=== PATIENT | female | born 1985 | race Caucasian/White ===

== ENCOUNTER → 2021-06-03 | Outpatient (CLI) | payer OTHER ==
[~2021-06-03] MED LIST: HYDACE5 PO; IBUP600 PO; IBUP800 PO
== END | disposition home or self-care (01) ==
LOC: LAB SHORT 11:50 → LAB 11:50
DX: O09.511 Supervision of elderly primigravida, first trimester (principal)
CPT/HCPCS: 87081; 87150

== ENCOUNTER 2021-07-06 19:21 | Inpatient (IN) | payer OTHER ==
[~2021-07-06] VITALS: Ht 157.5 cm; Wt 84.5 kg
[2021-07-06 23:30] LABS: BASOPHILS ABSOLUTE AUTO 0.03 K/mm3 (0.00-0.23); BASOPHILS PERCENT AUTO 0 % (0-2); EOSINOPHILS ABSOLUTE AUTO 0.03 K/mm3 (0.00-0.68); EOSINOPHILS PERCENT AUTO 0 % (0-6); Hematocrit 37.3 % (33.0-51.0); IMMATURE GRAN ABSOLUTE AUTO 0.07 K/mm3 (0.00-0.10); IMMATURE GRAN PERCENT AUTO 1 % (0-1); LYMPHOCYTES ABSOLUTE AUTO 2.52 K/mm3 (0.84-5.20); LYMPHOCYTES PERCENT AUTO 22 % (21-46); MONOCYTES ABSOLUTE AUTO 0.75 K/mm3 (0.16-1.47); MONOCYTES PERCENT AUTO 6 % (4-13); Mean Corpuscular HGB 32.7 pg (26.0-34.0); Mean Corpuscular HGB Conc 34.9 g/dL (31.5-36.5); Mean Corpuscular Volume 94 fL (80-100); Mean Platelet Volume 10.4 fL (9.1-12.4); NEUTROPHILS ABSOLUTE AUTO 8.33 K/mm3 (1.96-9.15); NEUTROPHILS PERCENT AUTO 71 % (41-73); Platelet Count 216 K/mm3 (150-400); RDW Coefficient Variation 15.5 % (11.7-14.2); RDW Standard Deviation 53.8 fL (35.1-46.3); Red Blood Cell Count 3.98 M/mm3 (3.80-5.20); White Blood Cell Count 11.73 K/mm3 (4.00-11.30)
[2021-07-06] MEDS ORDERED: PRENATAL TABLE1 EAC2 PO (23:33)
[2021-07-06] MEDS ORDERED: ASPI81CH PO (23:33)
[2021-07-07 10:18] LABS: PCO2 Cord - Arterial 48 mmHg (40-50); pH Cord - Arterial 7.31 (7.28-7.35)
[2021-07-07 10:20] LABS: PO2 Cord - Arterial 19 mmHg (16-20); pH Umbilical Cord - Venous 7.36 (7.26-7.35)
[2021-07-08 05:06] LABS: BASOPHILS ABSOLUTE AUTO 0.02 K/mm3 (0.00-0.23); BASOPHILS PERCENT AUTO 0 % (0-2); EOSINOPHILS ABSOLUTE AUTO 0.05 K/mm3 (0.00-0.68); EOSINOPHILS PERCENT AUTO 1 % (0-6); Hematocrit 33.7 % (33.0-51.0); Hemoglobin 11.4 g/dL (11.5-16.0); IMMATURE GRAN ABSOLUTE AUTO 0.08 K/mm3 (0.00-0.10); IMMATURE GRAN PERCENT AUTO 1 % (0-1); LYMPHOCYTES ABSOLUTE AUTO 2.18 K/mm3 (0.84-5.20); LYMPHOCYTES PERCENT AUTO 20 % (21-46); MONOCYTES ABSOLUTE AUTO 0.74 K/mm3 (0.16-1.47); MONOCYTES PERCENT AUTO 7 % (4-13); Mean Corpuscular HGB 32.3 pg (26.0-34.0); Mean Corpuscular HGB Conc 33.8 g/dL (31.5-36.5); Mean Corpuscular Volume 96 fL (80-100); Mean Platelet Volume 9.9 fL (9.1-12.4); NEUTROPHILS ABSOLUTE AUTO 8.04 K/mm3 (1.96-9.15); NEUTROPHILS PERCENT AUTO 72 % (41-73); Platelet Count 203 K/mm3 (150-400); RDW Coefficient Variation 15.9 % (11.7-14.2); RDW Standard Deviation 55.3 fL (35.1-46.3); Red Blood Cell Count 3.53 M/mm3 (3.80-5.20); White Blood Cell Count 11.11 K/mm3 (4.00-11.30)
--- NOTE | 2021-07-08 12:59 | NUR ---
PT UP AMBULATING THROUGH HALLWAY PUSHING NB IN OPEN CRIB.
--- NOTE | 2021-07-08 17:08 | NUR ---
07/08/21 1708 Paige Murray LATE ENTRY: PATIENT RECEIVED ANTIBIOTICS PRIOR TO ARRIVING IN THE OR.
[2021-07-09] MEDS ORDERED: IBUP800 PO (10:17)
[2021-07-09] MEDS ORDERED: DOCU100 PO (10:17)
[2021-07-09] MEDS ORDERED: ROXYBOND5 MG PO (10:18)
--- NOTE | 2021-07-09 14:45 | NUR ---
pt given written and verbal dc instructions. questions reviewed and given in detail. liliana will call [facility] on sunday for her and baby to be seen within 2 weeks of life. knows to call sooner if theres any issues. will also follow up on sunday for ppfu at [address]
== END 2021-07-09 14:24 | disposition home or self-care (01) | DRG 787 ==
LOC: OBS 19:21 → BC 19:21 → OBS 22:49 → BC 22:52
PROVIDERS: ADMIT Obstetrics & Gynecology
PROC: 10D00Z1 Extraction of Products of Conception, Low, Open Approach (ICD-10-PCS; principal; 2021-07-07 09:30)
DX: O99.824 Streptococcus B carrier state complicating childbirth (principal); D62 Acute posthemorrhagic anemia; Z37.0 Single live birth; Z3A.41 41 weeks gestation of pregnancy; Z67.11 Type A blood, Rh negative; O76 Abnormality in fetal heart rate and rhythm complicating labor and delivery; O26.893 Other specified pregnancy related conditions, third trimester; O99.03 Anemia complicating the puerperium; O77.0 Labor and delivery complicated by meconium in amniotic fluid; Z86.16 Personal history of COVID-19
CPT/HCPCS: 36415; 59025; 82803; 85025; 86850; 86900; 86901; A9270; J0290; J0690; J1885; J2370; J2590; J2765; J7120

== ENCOUNTER → 2023-04-10 | Outpatient (CLI) | payer OTHER ==
[~2023-04-10] MED LIST changes: +ASPI81CH PO; +DOCU100 PO; +PRENATAL TABLE1 EAC2 PO; +ROXYBOND5 MG PO
== END ==
LOC: LAB SHORT 10:32 → LAB 10:32
DX: O09.892 Supervision of other high risk pregnancies, second trimester (principal); Z3A.00 Weeks of gestation of pregnancy not specified
CPT/HCPCS: 87081; 87150

== ENCOUNTER 2023-05-07 19:17 | Inpatient (IN) | payer OTHER ==
[~2023-05-07] VITALS: Ht 157.5 cm; Wt 84.5 kg
[2023-05-07 20:22] LABS: BASOPHILS ABSOLUTE AUTO 0.02 K/mm3 (0.00-0.23); BASOPHILS PERCENT AUTO 0 % (0-2); EOSINOPHILS ABSOLUTE AUTO 0.04 K/mm3 (0.00-0.68); EOSINOPHILS PERCENT AUTO 0 % (0-6); Hematocrit 35.2 % (33.0-51.0); IMMATURE GRAN ABSOLUTE AUTO 0.07 K/mm3 (0.00-0.10); IMMATURE GRAN PERCENT AUTO 1 % (0-1); LYMPHOCYTES PERCENT AUTO 19 % (21-46); MONOCYTES ABSOLUTE AUTO 0.74 K/mm3 (0.16-1.47); MONOCYTES PERCENT AUTO 6 % (4-13); Mean Corpuscular HGB 32.4 pg (26.0-34.0); Mean Corpuscular HGB Conc 34.1 g/dL (31.5-36.5); Mean Corpuscular Volume 95 fL (80-100); NEUTROPHILS PERCENT AUTO 74 % (41-73); Platelet Count 209 K/mm3 (150-400); RDW Coefficient Variation 14.1 % (11.7-14.2); RDW Standard Deviation 49.3 fL (35.1-46.3); White Blood Cell Count 11.77 K/mm3 (4.00-11.30)
[2023-05-07 20:57] VITALS: BP 123/61
[2023-05-08] VITALS (27 sets, daily range): BP systolic 98–138; BP diastolic 49–79
--- NOTE | 2023-05-08 20:31 | NUR ---
nurse in room with pt. All needs being met at this time.
--- NOTE | 2023-05-08 23:26 | NUR ---
pt wants to sleep. Baby cared for by nurse. Will take baby to Pt for next feed.
[2023-05-09 02:37] VITALS: BP 126/59
[2023-05-09 05:02] VITALS: BP 145/62
[2023-05-09 06:04] LABS: Hematocrit 32.6 % (33.0-51.0); Hemoglobin 11.2 g/dL (11.5-16.0); Mean Corpuscular HGB 32.6 pg (26.0-34.0); Mean Corpuscular HGB Conc 34.4 g/dL (31.5-36.5); Mean Corpuscular Volume 95 fL (80-100); Platelet Count 206 K/mm3 (150-400); RDW Coefficient Variation 14.4 % (11.7-14.2); RDW Standard Deviation 49.2 fL (35.1-46.3); Red Blood Cell Count 3.44 M/mm3 (3.80-5.20); White Blood Cell Count 14.34 K/mm3 (4.00-11.30)
[2023-05-09 08:06] VITALS: BP 124/58
[2023-05-09] MEDS ORDERED: IBUP800 PO (11:11)
[2023-05-09 13:22] VITALS: BP 135/77
--- NOTE | 2023-05-11 09:22 | NUR ---
PPFU DONE OVER PHONE BABY TRANSPORTED [facility]
== END 2023-05-09 13:25 | disposition home or self-care (01) | DRG 806 ==
LOC: BC 19:17 → OBS 19:17 → BC 19:39
PROVIDERS: ADMIT Obstetrics & Gynecology
PROC: 0U7C3ZZ Dilation of Cervix, Percutaneous Approach (ICD-10-PCS; principal; 2023-05-08)
PROC: 10E0XZZ Delivery of Products of Conception, External Approach (ICD-10-PCS; 2023-05-08)
PROC: 0KQM0ZZ Repair Perineum Muscle, Open Approach (ICD-10-PCS; 2023-05-08)
PROC: 10907ZC Drainage of Amniotic Fluid, Therapeutic from Products of Conception, Via Natural or Artificial Opening (ICD-10-PCS; 2023-05-08)
PROC: 3E033VJ Introduction of Other Hormone into Peripheral Vein, Percutaneous Approach (ICD-10-PCS; 2023-05-08)
PROC: 00HU33Z Insertion of Infusion Device into Spinal Canal, Percutaneous Approach (ICD-10-PCS; 2023-05-08)
PROC: 3E0R3BZ Introduction of Anesthetic Agent into Spinal Canal, Percutaneous Approach (ICD-10-PCS; 2023-05-08)
PROC: 3E0234Z Introduction of Serum, Toxoid and Vaccine into Muscle, Percutaneous Approach (ICD-10-PCS; 2023-05-08)
DX: O99.344 Other mental disorders complicating childbirth (principal); O98.82 Other maternal infectious and parasitic diseases complicating childbirth; Z37.0 Single live birth; O48.0 Post-term pregnancy; Z3A.40 40 weeks gestation of pregnancy; B95.1 Streptococcus, group B, as the cause of diseases classified elsewhere; O26.893 Other specified pregnancy related conditions, third trimester; O70.1 Second degree perineal laceration during delivery; O34.211 Maternal care for low transverse scar from previous cesarean delivery; N85.8 Other specified noninflammatory disorders of uterus; O09.523 Supervision of elderly multigravida, third trimester; F41.3 Other mixed anxiety disorders; Z67.11 Type A blood, Rh negative; Z98.818 Other dental procedure status; Z87.891 Personal history of nicotine dependence; Z79.82 Long term (current) use of aspirin; Z79.899 Other long term (current) drug therapy
CPT/HCPCS: 36415; 51702; 59200; 85025; 85027; 86850; 86900; 86901; 86923; A9270; J0290; J1885; J2590; J3010; J7120

== ENCOUNTER 2024-10-06 08:44 | Day surgery (SDC) | payer OTHER ==
[~2024-10-06] VITALS: Ht 157.5 cm; Wt 82.0 kg
[~2024-10-06 08:44] MED LIST changes: +NS 500 ML IV ONE
[2024-10-06] MEDS ORDERED: Lidocaine 1%-Epineph 1:100000 20 ML MDV ONE (08:46)
[2024-10-06] MEDS ORDERED: NS 500 ML IV ONE (08:59)
[2024-10-06] MEDS ORDERED: Midazolam HCl 1MG / ML 2ML Vial ONE (09:28)
[2024-10-06 10:14] VITALS: BP 114/73
== END 2024-10-06 10:14 | disposition home or self-care (01) ==
LOC: ORSCSDS 08:44
PROVIDERS: Orthopaedic Surgery
PROC: 01N54ZZ Release Median Nerve, Percutaneous Endoscopic Approach (ICD-10-PCS; principal; 2024-10-06 10:15)
DX: G56.03 Carpal tunnel syndrome, bilateral upper limbs (principal); F32.9 Major depressive disorder, single episode, unspecified; J45.909 Unspecified asthma, uncomplicated; E66.9 Obesity, unspecified; Z68.33 Body mass index [BMI] 33.0-33.9, adult
CPT/HCPCS: J2250; J7040

== ENCOUNTER 2024-12-22 08:31 | Day surgery (SDC) | payer OTHER ==
[~2024-12-22] VITALS: Ht 160 cm; Wt 85.1 kg
[~2024-12-22 08:31] MED LIST changes: +ASHWAGANDHA62.5 MG PO; +IBUP200 PO; +ONE DAILY MUL400 MCG PO; +[UNRECOGNIZED DRUG - OTHER] PO
[2024-12-22] MEDS ORDERED: NS 500 ML IV ONE (09:13)
--- NOTE | 2024-12-22 09:36 | NUR ---
12/22/24 0936 Rebecca Castañeda TIME OUT PERFORMED AT BEDSIDE WITH DR OSCAR AT 0931 IMMEDIATELY PRIOR TO INJECTION OF 7ML OF SOLUTION OF 9ML 1% LIDOCAINE W/EPI [id number] AND 1ML 8.4% SODIUM BICARBONATE. PATIENT TOLERATED PROCEDURE WELL.
[2024-12-22] MEDS ORDERED: FentaNYL Citrate 50 MCG/ML 2 ML Injection ONE (09:45)
[2024-12-22] MEDS ORDERED: Midazolam HCl 1MG / ML 2ML Vial ONE (09:45)
[2024-12-22 10:48] VITALS: BP 105/66
--- NOTE | 2024-12-22 11:00 | NUR ---
12/22/24 SHANDA MCKEON PT VERBALIZES UNDERSTANDING OF DISCHARGE INSTRUCTIONS AND STATES ALL QUESTIONS HAVE BEEN ANSWERED.
== END 2024-12-22 10:58 | disposition home or self-care (01) ==
LOC: ORSCSDS 08:31
PROVIDERS: Orthopaedic Surgery
PROC: 01N54ZZ Release Median Nerve, Percutaneous Endoscopic Approach (ICD-10-PCS; principal; 2024-12-22 10:00)
DX: G56.02 Carpal tunnel syndrome, left upper limb (principal); E66.9 Obesity, unspecified; Z68.33 Body mass index [BMI] 33.0-33.9, adult
CPT/HCPCS: J2250; J3010; J7040

== ENCOUNTER → 2025-08-26 | Outpatient (CLI) | payer OTHER ==
[~2025-08-26] MED LIST changes: -NS 500 ML IV ONE
[2025-08-27 15:24] LABS: Stool Occult Bld Immuno 1 Negative (NEGATIVE)
== END ==
LOC: LAB SHORT 13:48 → LAB 13:48
PROVIDERS: Family Medicine
DX: D50.9 Iron deficiency anemia, unspecified (principal)
CPT/HCPCS: 82274

== ENCOUNTER → 2025-08-27 | Outpatient (CLI) | payer OTHER ==
[2025-08-27 14:50] LABS: Source, Urine Voided
[2025-08-27 17:53] LABS: Bilirubin, Urine Neg (Neg); Glucose Qualitative, Urine Neg (Neg); Ketones, Urine Neg (Neg); Leukocyte Esterase, Urine 1+ (Neg); Protein, Urine 1+ (Neg); Specific Gravity, Urine 1.025 (1.003-1.022); Urobilinogen, Urine NORM (Normal)
[2025-08-27 18:08] LABS: Color, Urine Pale Yellow (P-Yellow); Red Blood Cells, Urine 0-2 /hpf (0-2)
== END ==
LOC: LAB SHORT 14:44 → EDSTATUS 07-30 16:40 → LAB FUT 07-30 16:40
PROVIDERS: Family Medicine
DX: D50.9 Iron deficiency anemia, unspecified (principal)
CPT/HCPCS: 81001